=== PATIENT | female | born 1955 | race Caucasian/White ===

== ENCOUNTER 2017-07-29 08:49 | Outpatient (CLI) | payer OTHER ==
--- NOTE | 2017-07-29 10:17 | MMO ---
BILATERAL DIGITAL SCREENING MAMMOGRAM: History: 61-year-old female presents for digital screening mammography. Comparison: 05-16-16, 10-15-12 FINDINGS: This study is interpreted with the assistance of computer aided detection. Scattered areas of fibroglandular density are noted bilaterally. Stable typically benign calcificatio ns. No direct or indirect evidence of malignancy. IMPRESSION: BIRADS category 2 - benign findings. Continue routine screening. POS: [facility]
== END 2017-07-29 08:50 | disposition home or self-care (01) ==
LOC: SCSMAMMO 08:49
PROVIDERS: ATTEND Family Medicine
DX: Z12.31 Encounter for screening mammogram for malignant neoplasm of breast (principal)
CPT/HCPCS: 77067; G0202

== ENCOUNTER 2018-08-14 09:38 | Outpatient (CLI) | payer OTHER ==
--- NOTE | 2018-08-14 13:47 | MMO ---
BILATERAL DIGITAL SCREENING MAMMOGRAMS: Date: 08/14/18 HISTORY: 62-year-old female presents for digital screening mammogram. COMPARISON: 07/29/17, 05/16/16, 10/15/12. FINDINGS: This patient's mammogram was interpreted with the assistance of computer-aided detection. Scattered areas of fibroglandular density are noted bilaterally. Stable typically benign calcificatio ns. IMPRESSION: BIRADS 2: Benign Finding(s) Continue routine screening. POS: [facility]EL
== END 2018-08-14 09:39 | disposition home or self-care (01) ==
LOC: SCSMAMMO 09:38
PROVIDERS: ATTEND Family Medicine
DX: Z12.31 Encounter for screening mammogram for malignant neoplasm of breast (principal)
CPT/HCPCS: 77067

== ENCOUNTER 2019-02-22 14:56 | Outpatient (CLI) | payer OTHER | END 2019-02-22 14:57 | disposition home or self-care (01) | LOC: DTY/OP 14:56 | PROVIDERS: ATTEND Family Medicine | DX: E11.9 Type 2 diabetes mellitus without complications (principal); I10 Essential (primary) hypertension; E78.5 Hyperlipidemia, unspecified; Z79.4 Long term (current) use of insulin | CPT/HCPCS: 97802 ==